=== PATIENT | male | born 1935 | race Caucasian/White ===

== ENCOUNTER 2021-12-08 11:33 | Inpatient (IN) ==
[2021-12-08 12:33] LABS: Basophils % 0.4 %; Eosinophils # 0.1 K/mcL (0.0-0.6); Eosinophils % 0.8 %; Hematocrit 45.4 % (37.5-50.1); Hemoglobin 15.3 g/dL (12.9-16.9); Immature Granulocytes % 0.3 % (0-4); Lymphocytes # 1.7 K/mcL (0.6-4.6); Lymphocytes % 15.9 %; Mean Corpuscular HGB Conc 33.7 g/dL (31.6-35.5); Mean Platelet Volume 10.7 fL (9.4-12.4); Monocytes # 0.7 K/mcL (0.0-1.3); Monocytes % 6.2 %; Platelet Count 238 K/mcL (140-400); Red Blood Count 5.28 M/mcL (4.19-5.50); Red Cell Distribution Width 12.9 % (11.5-14.5); Segmented Neutrophils % 76.4 %; White Blood Count 10.4 K/mcL (4.3-11.1)
[2021-12-08 12:46] LABS: INR 1.1
[2021-12-08 12:49] LABS: Activated Partial Thrombo Time 30.8 Seconds (26.0-36.0)
[2021-12-08 13:07] LABS: Troponin I 0.04 ng/mL (< 0.04)
[2021-12-08 13:44] LABS: BUN/Creatinine Ratio 17 (6-26); Blood Urea Nitrogen 22 mg/dL (8-23); Calcium 10.1 mg/dL (8.6-10.3); Carbon Dioxide 28 mEq/L (23-29); Chloride 94 mEq/L (98-107); Glucose 156 mg/dL (70-105); Magnesium 1.4 mg/dL (1.6-2.6); Osmolality,Calculated 283 (280-300); Potassium 3.9 mEq/L (3.5-5.1); Sodium 133 mEq/L (136-145); Thyroid Stimulating Hormone 4.693 mcIU/mL (0.340-5.600); eGFR For African Americans > 60 (> 60); eGFR For Non-African Americans 54 (> 60)
[2021-12-08] MEDS ORDERED: Naloxone 0.4 MG/ML INJ IVP PRN (14:28)
[2021-12-08] MEDS ORDERED: Perflutren Lipid Microsphere 1.3 ML in 0.9 % Sodium Chloride 8.7 ML IVP PRN (15:13)
[2021-12-08] MEDS: Lisinopril-HCTZ 20-12.5mg TABLET PO SCH (20:15)
[2021-12-08] MEDS: amLODIPine 5 MG TABLET PO SCH (20:15)
[2021-12-08] MEDS: *HR* Heparin 5,000 UNIT/ML VIAL SQ SCH (21:31)
[2021-12-09 02:18] LABS: Basophils % 0.5 %; Eosinophils # 0.2 K/mcL (0.0-0.6); Eosinophils % 2.9 %; Hematocrit 39.3 % (37.5-50.1); Immature Granulocytes % 0.3 % (0-4); Lymphocytes # 1.5 K/mcL (0.6-4.6); Lymphocytes % 19.7 %; Mean Corpuscular HGB Conc 33.8 g/dL (31.6-35.5); Mean Corpuscular Hemoglobin 28.8 pg (28.0-33.3); Mean Corpuscular Volume 85.1 fL (83.0-100.0); Mean Platelet Volume 10.8 fL (9.4-12.4); Monocytes # 0.6 K/mcL (0.0-1.3); Monocytes % 8.2 %; Neutrophils # 5.1 K/mcL (1.6-8.9); Platelet Count 202 K/mcL (140-400); Red Blood Count 4.62 M/mcL (4.19-5.50); Red Cell Distribution Width 12.7 % (11.5-14.5); Segmented Neutrophils % 68.4 %; White Blood Count 7.5 K/mcL (4.3-11.1)
[2021-12-09 02:19] LABS: Hemoglobin 13.3 g/dL (12.9-16.9)
[2021-12-09 02:34] LABS: BUN/Creatinine Ratio 19 (6-26); Blood Urea Nitrogen 21 mg/dL (8-23); Calcium 8.7 mg/dL (8.6-10.3); Carbon Dioxide 27 mEq/L (23-29); Chloride 98 mEq/L (98-107); Glucose 132 mg/dL (70-105); Osmolality,Calculated 279 (280-300); Potassium 3.6 mEq/L (3.5-5.1); Sodium 132 mEq/L (136-145); eGFR For African Americans > 60 (> 60); eGFR For Non-African Americans > 60 (> 60)
[2021-12-09] MEDS: *HR* Heparin 5,000 UNIT/ML VIAL SQ SCH (05:01)
[2021-12-09] MEDS: Psyllium 1 PACKET POWD.PACK PO SCH (08:37)
[2021-12-09] MEDS: Aspirin Enteric Coated 81 MG Tablet PO SCH (08:38)
[2021-12-09] MEDS: Lisinopril-HCTZ 20-12.5mg TABLET PO SCH ×2 (08:38→20:33)
[2021-12-09] MEDS: Ascorbic Acid 500 MG TABLET PO SCH (08:38)
[2021-12-09] MEDS: amLODIPine 5 MG TABLET PO SCH ×2 (08:38→20:33)
[2021-12-09] MEDS: Cholecalciferol (D-3) 1,000 UNIT (25MCG) TABLET PO SCH (08:38)
[2021-12-09] MEDS ORDERED: Metoprolol XL (24 HR) Succ 25 MG TAB.ER.24H PO SCH (09:00)
[2021-12-09] MEDS ORDERED: 0.9 % Sodium Chloride 500 ML ONE (11:31)
[2021-12-09] MEDS ORDERED: 0.9 % Sodium Chloride 1,000 ML ONE (11:31)
[2021-12-09] MEDS ORDERED: *HR* Midazolam HCl 2 MG/2 ML VIAL ONE (12:00)
[2021-12-09] MEDS ORDERED: *HR* FentaNYL (PF) 100 MCG/2 ML VIAL ONE (12:00)
[2021-12-09] MEDS ORDERED: Acetaminophen 325 MG TABLET PO PRN (13:37)
[2021-12-09] MEDS ORDERED: CeFAZolin 2,000 MG/120 ML BAG IVPB ONE (21:00)
[2021-12-10 01:50] LABS: Basophils % 0.5 %; Eosinophils # 0.2 K/mcL (0.0-0.6); Eosinophils % 1.8 %; Hematocrit 38.4 % (37.5-50.1); Hemoglobin 13.1 g/dL (12.9-16.9); Immature Granulocytes % 0.4 % (0-4); Lymphocytes # 1.6 K/mcL (0.6-4.6); Lymphocytes % 18.7 %; Mean Corpuscular HGB Conc 34.1 g/dL (31.6-35.5); Mean Corpuscular Hemoglobin 29.1 pg (28.0-33.3); Mean Corpuscular Volume 85.3 fL (83.0-100.0); Mean Platelet Volume 10.7 fL (9.4-12.4); Monocytes # 0.7 K/mcL (0.0-1.3); Monocytes % 8.8 %; Neutrophils # 5.8 K/mcL (1.6-8.9); Platelet Count 188 K/mcL (140-400); Red Cell Distribution Width 12.6 % (11.5-14.5); Segmented Neutrophils % 69.8 %; White Blood Count 8.3 K/mcL (4.3-11.1)
[2021-12-10 02:05] LABS: BUN/Creatinine Ratio 16 (6-26); Blood Urea Nitrogen 16 mg/dL (8-23); Calcium 8.4 mg/dL (8.6-10.3); Carbon Dioxide 27 mEq/L (23-29); Chloride 100 mEq/L (98-107); Glucose 160 mg/dL (70-105); Osmolality,Calculated 281 (280-300); Potassium 3.7 mEq/L (3.5-5.1); Sodium 133 mEq/L (136-145); eGFR For African Americans > 60 (> 60); eGFR For Non-African Americans > 60 (> 60)
[2021-12-10 07:09] VITALS: BP 161/71; PULSE 51; TEMP 97.8; O2SAT 94
[2021-12-10] MEDS: Cholecalciferol (D-3) 1,000 UNIT (25MCG) TABLET PO SCH (08:12)
[2021-12-10] MEDS: Aspirin Enteric Coated 81 MG Tablet PO SCH (08:12)
[2021-12-10] MEDS: Lisinopril-HCTZ 20-12.5mg TABLET PO SCH (08:12)
[2021-12-10] MEDS: Ascorbic Acid 500 MG TABLET PO SCH (08:12)
[2021-12-10] MEDS: Psyllium 1 PACKET POWD.PACK PO SCH (08:12)
[2021-12-10] MEDS: amLODIPine 5 MG TABLET PO SCH (08:12)
== END 2021-12-10 10:47 | disposition home or self-care (01) | DRG 244 ==
LOC: 3BNU 11:33 → EMEROOARM 11:33 → SUATTDRO 15:06 → 3BNU 16:14
PROVIDERS: ADMIT Internal Medicine; ATTEND Internal Medicine